=== PATIENT | male | born 1940 | race Caucasian/White ===

== ENCOUNTER 2022-04-16 19:36 | Inpatient (IN) | payer OTHER ==
[~2022-04-16] VITALS: Ht 167.6 cm; Wt 49.9 kg
[2022-04-16] MEDS ORDERED: ATORVASTATIN CA20 MG PO (19:58)
[2022-04-16] MEDS ORDERED: AMLODIPINE-OLM1 EAC2 PO (19:58)
--- NOTE | 2022-04-16 19:58 | NUR ---
SE RECIBE PTE ALERTA Y ORIENTADO X3. REFIERE MARY TENIDO 5 VOMITOS DESDE LA MANANA.
--- NOTE | 2022-04-16 20:27 | NUR ---
PTE ALERTA,ESTABLE Y ORIENTADO.SE EDUCA SOBRE EL TRATAMIENTO QUE RECIBIRA EN EL [facility]ITAL Y [facility] REFIERE ENTENDER.SE LE AYANA MUESTRAS JAMILAH Y SE LE ADMINISTRA MEDICAMENTOS JENNIFER ORDEN MEDICA
--- NOTE | 2022-04-17 07:40 | NUR ---
SE RECIBE PTE MASCULINO DE 82 ANOS ALERTA Y ORIENTADO X3 QUIEN AL MOMENTO NO REFIER EDOLOR. PTE SE OBSERBA CON ANGIO 18 EN IZQ POR EL CUAL RECIBE INFUCION DE 0.95 NSS. PTE AL MOMENTO SE MANTIENE EN CAMA EN DESCANSO ABSOLUTO. PTE PEND A EVALUACION DE DRA RICHEY.
== END 2022-04-19 13:05 | disposition home or self-care (01) | DRG 440 ==
LOC: ER 19:36 → SEC-K 04-17 10:10 → MEDI 04-17 10:22
PROVIDERS: ADMIT Internal Medicine; ATTEND Internal Medicine
PROC: BF37ZZZ Magnetic Resonance Imaging (MRI) of Pancreas (ICD-10-PCS; principal; 2022-04-17)
PROC: BF36ZZZ Magnetic Resonance Imaging (MRI) of Liver and Spleen (ICD-10-PCS; 2022-04-17)
DX: K85.90 Acute pancreatitis without necrosis or infection, unspecified (principal); I10 Essential (primary) hypertension; E66.9 Obesity, unspecified